=== PATIENT | male | born 1945 | race African-American/Black ===

== ENCOUNTER 2020-06-11 13:01 | Emergency (ER) | payer MEDICARE ==
--- NOTE | 2020-06-11 13:12 | Event Note ---
ED Screening Note Date of service: 06/11/20 Time: 13:11 ED Screening Note: Patient complains of loss of taste/smell, cough, and fever x1 week Unsure what temperature was per patient No prior medical history per patient + Shortness of breath This initial assessment/diagnostic orders/clinical plan/treatment(s) is/are subject to change based on patients health status, clinical progression and re- assessment by fellow clinical providers in the ED. Further treatment and workup at subsequent clinical providers discretion. Patient/guardian urged not to elope from the ED as their condition may be serious if not clinically assessed and managed. Initial orders include: Labs Chest x-ray
--- NOTE | 2020-06-11 14:18 | XRay Report ---
CHEST 2 VIEWS INDICATION / CLINICAL INFORMATION: Cough and fever. COMPARISON: None available. FINDINGS: SUPPORT DEVICES: None. HEART / MEDIASTINUM: The heart size and pulmonary vasculature are normal. LUNGS / PLEURA: There is mild vague patchy groundglass parenchymal opacity in the right upper lobe. T he lungs are otherwise clear. There is no evidence of adenopathy or effusion. No pneumothorax. ADDITIONAL FINDINGS: There is mild to moderate thoracolumbar scoliosis and spondylosis. IMPRESSION: Mild right upper lobe pneumonia. Signer Name: Nixon Farrell MD Signed: 06/11/2020 2:14 PM Workstation Name: [id number]
[2020-06-11 15:27] LABS: Basophils % (Auto) 0.3 % (0.0-1.8); Hematocrit 40.9 % (35.5-45.6); Hemoglobin 13.6 gm/dl (11.8-15.2); Lymphocytes # (Auto) 1.4 K/mm3 (1.2-5.4); Lymphocytes % (Auto) 22.7 % (13.4-35.0); Mean Corpuscular HGB Conc 33 % (32-34); Mean Corpuscular Volume 84 fl (84-94); Monocytes # (Auto) 0.9 K/mm3 (0.0-0.8); Platelet Count 323 K/mm3 (140-440); Red Blood Count 4.85 M/mm3 (3.65-5.03); Red Cell Distribution Width 13.8 % (13.2-15.2)
[2020-06-11 15:48] LABS: Alanine Aminotransferase 41 units/L (7-56); Albumin 3.7 g/dL (3.9-5); BUN/Creatinine Ratio 32; Blood Urea Nitrogen 42 mg/dL (9-20); Calcium 9.2 mg/dL (8.4-10.2); Hemolysis Index 4
[2020-06-11] MEDS ORDERED: SODIUM CHLORIDE 0.9% 1000 ML 1,000 ML IV ONE (20:03)
--- NOTE | 2020-06-11 21:00 | Emergency Department Report ---
ED General Adult HPI - General Chief complaint: Fever Stated complaint: NO SMELL/TASTE/COUGHING/? COVID Time Seen by Provider: 06/11/20 13:10 Source: patient Mode of arrival: Ambulatory Limitations: No Limitations - History of Present Illness Initial comments: 74-year-old male accompanied by his grandson reports that his the patient has been having Covid-like symptoms for 1 week. The symptoms include fever, loss of appetite cough and lost of taste and smell. He also reports having another sibling in the home with similar symptoms he was tested for Covid and was negative. Patient has not been tested for Covid. he denies any past medical history patient currently denies any chest pain shortness of breath no nausea no vomiting he is well-appearing in no acute distress. Grandson states he is concerned because his only eating and drinking small amounts. patient's vital signs on arrival to the emergency room he is afebrile with a temp of 97.9 heart rate 91 respirations 18 oxygen saturation 96% on room air blood pressure 109/59 -: week(s) (1) Associated Symptoms: cough (Productive with mucus), fever/chills, loss of appetite, malaise. denies: chest pain, headaches, nausea/vomiting, rash, shortness of breath, syncope Treatments Prior to Arrival: none - Related Data Previous Rx's Medication Instructions Recorded Last Taken Type Amoxicillin [Amoxicillin TAB] 875 mg PO Q8H 10 Days #30 tablet 06/11/20 Unknown Rx Azithromycin [Zithromax Z-KORY] 0 mg PO DAILY #1 pack 06/11/20 Unknown Rx Allergies Allergy/AdvReac Type Severity Reaction Status Date / Time No Known Allergies Allergy Unverified 06/11/20 13:08 ED Review of Systems ROS: Stated complaint: NO SMELL/TASTE/COUGHING/? COVID Other details as noted in HPI Comment: All other systems reviewed and negative Constitutional: chills, fever, malaise Eyes: denies: eye pain, eye discharge, vision change ENT: denies: ear pain, throat pain, dental pain, hearing loss, congestion Respiratory: denies: orthopnea, shortness of breath, SOB with exertion Cardiovascular: denies: chest pain, palpitations, dyspnea on exertion, ortho pnea, edema, syncope, paroxysmal nocturnal dyspnea Gastrointestinal: denies: abdominal pain, nausea, vomiting Genitourinary: denies: urgency, dysuria, frequency, hematuria Skin: denies: rash, lesions Neurological: denies: headache, weakness Psychiatric: denies: anxiety, depression, auditory hallucinations, visual hallucinations ED Past Medical Hx - Past Medical History Hx Hypertension: Yes - Surgical History Past Surgical History?: No - Social History Smoking Status: Former Smoker - Medications Home Medications: Home Medications Medication Instructions Recorded Confirmed Last Taken Type Amoxicillin [Amoxicillin TAB] 875 mg PO Q8H 10 Days #30 tablet 06/11/20 Unknown Rx Azithromycin [Zithromax Z-KORY] 0 mg PO DAILY #1 pack 06/11/20 Unknown Rx ED Physical Exam - General Limitations: No Limitations General appearance: alert, in no apparent distress - Head Head exam: Absent: atraumatic - Eye Eye exam: Present: normal appearance. Absent: scleral icterus - ENT ENT exam: Present: normal exam, normal orophraynx, mucous membranes moist, TM's normal bilaterally - Neck Neck exam: Present: normal inspection - Respiratory Respiratory exam: Present: normal lung sounds bilaterally. Absent: wheezes, rales, rhonchi, chest wall tenderness, accessory muscle use, decreased breath sounds - Cardiovascular Cardiovascular Exam: Present: regular rate, normal heart sounds - GI/Abdominal GI/Abdominal exam: Present: soft - Rectal Rectal exam: Present: deferred - Extremities Exam Extremities exam: Present: normal inspection - Back Exam Back exam: Present: normal inspection - Neurological Exam Neurological exam: Present: alert, oriented X3 - Psychiatric Psychiatric exam: Present: normal affect - Skin Skin exam: Present: warm, dry, intact, normal color. Absent: diaphoretic ED Course Vital Signs 06/11/20 06/11/20 13:11 22:09 Temperature 97.9 F 98.9 F Pulse Rate 91 H 91 H Respiratory 18 20 Rate Blood Pressure 109/59 Blood Pressure 131/60 [Left] O2 Sat by Pulse 96 97 Oximetry - Reevaluation(s) Reevaluation #1: 06/11/20 21:01 Patient in no acute distress denies any complaints at this time Reevaluation #2: 06/11/20 22:04 Patient's primary care doctor Dr. Blessing Lino called inquiring about patient's condition. I discussed findings with patient with Very well. She will be able to see patient in the office for reevaluation and for Covid testing 06/12/20 01:53 Reevaluation #3: 06/11/20 22:25 Patient doing well in no distress. There is no desaturation with ambulation. Patient denies chest pain and shortness of breath not observed coughing he tolerated a bolus of fluids well ED Medical Decision Making - Lab Data Result diagrams: 06/11/20 14:54 06/11/20 14:54 - Radiology Data Radiology results: report reviewed Chest x-ray FINDINGS: SUPPORT DEVICES: None. HEART / MEDIASTINUM: The heart size and pulmonary vasculature are normal. LUNGS / PLEURA: There is mild vague patchy groundglass parenchymal opacity in the right upper lobe. The lungs are otherwise clear. There is no evidence of adenopathy or effusion. No pneumothorax. ADDITIONAL FINDINGS: There is mild to moderate thoracolumbar scoliosis and spondylosis. IMPRESSION: Mild right upper lobe pneumonia. - Medical Decision Making 74-year-old male with no past medical history he has had 1 week of Covid-like symptoms which include fever coughing decreased appetite and loss of taste and smell he denies chest pain and shortness of breath and he has no past medical history chest x-ray done and it showed a mild right middle lobe pneumonia. Patient given 1 L of normal saline for rehydration. Patient walked in the emergency room and at no time did his eoxygen saturation fall. It remained between 96 and 98% max heart rate was 102 at rest heart rate 87 he continues to be afebrile. I discussed the plan with patient's primary care doctor Dr. Carvajal she will see patient in 2 days and she plans to do a Covid test at her office. Patient discharged with amoxicillin and azithromycin. Plan of care discussed with Dr. Caal and she agrees - Differential Diagnosis COVID-19 influenza right middle lobe pneumonia Critical Care Time: No Critical care attestation.: If time is entered above; I have spent that time in minutes in the direct care of this critically ill patient, excluding procedure time. ED Disposition Clinical Impression: Right middle lobe pneumonia Qualifiers: Pneumonia type: due to unspecified organism Qualified Code(s): J18.9 - Pneumonia, unspecified organism Disposition: DC-01 TO HOME OR SELFCARE Is pt being admited?: No Does the pt Need Aspirin: No Condition: Stable Instructions: Community-Acquired Pneumonia, Adult, Bacterial Pneumonia (ED) Additional Instructions: Please refer to the list you were given and have COVID-19 test done. Continue to quarantine at home for 2 weeks. The chest x-ray shows that you have right middle lobe pneumonia. Take antibiotic as prescribed rest increase oral hydration 6-8 glasses per day. Follow-up with Dr. Lino in 2 days. If your symptoms worsen and you develop shortness of breath or any difficulty breathing or chest pain please return immediately. Please follow-up with Dr. Holland radford in 2 days her phone number is [phone] Prescriptions: Amoxicillin [Amoxicillin TAB] 875 mg PO Q8H 10 Days #30 tablet Azithromycin [Zithromax Z-KORY] 0 mg PO DAILY #1 pack Referrals: PRIMARY CARE,MD [Primary Care Provider] - 3-5 Days Time of Disposition: 22:08
[2020-06-11 22:10] VITALS: BP 131/60
== END 2020-06-11 23:00 | disposition home or self-care (01) ==
LOC: ED 13:01
DX: J18.8 Other pneumonia, unspecified organism (principal); I10 Essential (primary) hypertension; Z87.891 Personal history of nicotine dependence; Z79.2 Long term (current) use of antibiotics
CPT/HCPCS: 36415; 71046; 80053; 84484; 85025; 96360; 99284; J7030